=== PATIENT | male | born 1985 | race Caucasian/White ===

== ENCOUNTER 2016-11-27 19:30 | Outpatient (CLI) | payer OTHER | END 2016-11-27 19:31 | disposition home or self-care (01) | LOC: SLEEPLAB 19:30 | PROVIDERS: ATTEND Specialist | DX: G47.33 Obstructive sleep apnea (adult) (pediatric) (principal); F51.9 Sleep disorder not due to a substance or known physiological condition, unspecified; G47.10 Hypersomnia, unspecified; R53.83 Other fatigue; R40.0 Somnolence; G31.84 Mild cognitive impairment of uncertain or unknown etiology; K21.9 Gastro-esophageal reflux disease without esophagitis; R06.83 Snoring | CPT/HCPCS: 95811 ==